=== PATIENT | female | born 1960 | race Caucasian/White ===

== ENCOUNTER 2020-08-26 13:06 | Observation (INO) | payer OTHER ==
[~2020-08-26] VITALS: Ht 170.2 cm; Wt 87.1 kg
--- NOTE | ~2020-08-26 | OP ---
[address] [address] OPERATIVE REPORT Name: JENNA CONTRERAS Room: [address]#: [id number] Admission: 08/26/20 Attend Phys: Ar Khan DO Discharge: Date of : 56 Report #: [id number] THIS REPORT FOR: cc: Sandra Panda,Ar Ohara DO ~ cc: DELVIS Johnson DATE OF SURGERY: 08/26/2020 PREOPERATIVE DIAGNOSIS: Acute appendicitis. POSTOPERATIVE DIAGNOSIS: Acute appendicitis. SURGEON: Ar Khan DO CO-SURGEON: Jack Lakhani, PGY5. [employer] DEVELOPER: LEONARDA BeasleyY2 PROCEDURE PERFORMED: Laparoscopic appendectomy. TYPE OF ANESTHESIA: General and local. ESTIMATED BLOOD LOSS: 20 mL SPECIMEN: Appendix. COMPLICATIONS: None. FINDINGS: Acute appendicitis with localized peritonitis. HISTORY OF PRESENT ILLNESS: The patient is a 60-year-old female who presented to the emergency room with right flank pain for roughly 12 hours with some nausea, no vomiting. A CT scan on arrival revealed acute appendicitis. We discussed with her at length the risks, benefits and alternatives to include bleeding, infection, injury to surrounding structures, possible open surgery. After acknowledging her understanding of the risks and benefits, she agreed to proceed with surgery. DESCRIPTION OF PROCEDURE: After consent was obtained, the patient was taken to the operating room and placed in the supine position. SCDs were applied to bilateral lower extremities. Safety belt placed across the patient's waist. Two grams Ancef given for surgical prophylaxis. The patient underwent general endotracheal intubation without any complication. The patient's abdomen was prepped and draped in the standard sterile fashion. [place] [address] OPERATIVE REPORT Name: DIANEJENNA Room: [address]#: [id number] Admission: 08/26/20 Attend Phys: Ar Khan DO Discharge: Date of : 56 Report #: [id number] confirm the patient, procedure. An 11 blade scalpel was used to make an incision just below the umbilicus. Electrocautery used for hemostasis and to dissect down to the level of fascia. Once the fascia was encountered, it was scored with electrocautery, grasped between 2 Kochers. Hemostat was used bluntly into the peritoneum. Two stitches of 0 Vicryl were placed on either side of the fascia. A 5 mm Krystin trocar inserted into the abdomen, insufflation initiated. Intra-abdominal contents were inspected. There was no evidence of localized peritonitis on the right lower quadrant. We then placed a 5 mm trocar suprapubic under direct visualization and a 12 mm trocar in the left lower quadrant. The patient was placed in slight Trendelenburg. The tinea of the cecum was traced down towards the appendix, which was seen to be grossly dilated and edematous consistent with acute appendicitis. The appendix was mobilized and the Harmonic scalpel was used to dissect across the mesoappendix. Once hemostasis was completely insured 45 purple load Endo-MABEL stapler was fired across the base of the appendix. The appendix was placed in laparoscopic EndoCatch bag. The staple line was inspected for bleeding. Once hemostasis was ensured, the right lower quadrant was irrigated and fluid was suctioned out, the patient was returned to the neutral position. All trocars were removed under direct visualization. The appendix and its contents were removed from the infraumbilical trocar site and sent for pathologic evaluation. Infraumbilical fascia was reapproximated with 2 stitches of 0 Vicryl in [id number] fashion. Subcutaneous tissue reapproximated with 3-0 Vicryl. All skin incisions were reapproximated with 4-0 Monocryl in subcuticular fashion. All needle, instrument and sponge counts correct x2 at the end of the case. The patient tolerated the procedure well and was awoken from general anesthesia and transferred to PACU in stable condition. By: [id number] maria Khan DO /ney
[~2020-08-26 13:06] MED LIST: CITRATE OF MAG296 ML PO; FOLIC ACID1 MG PO; LEVSIN PO; OMEPRAZOLE40 MG PO; SIMVASTATIN40 MG PO
[2020-08-26 13:14] VITALS: BP 132/72
[2020-08-26 13:34] LABS: ABSOLUTE BASOPHILS 0.1 thou/uL (0.0-0.2); ABSOLUTE LYMPHOCYTES 1.7 thou/uL (0.8-5.3); ABSOLUTE NEUTROPHILS 13.2 thou/uL (1.6-8.1); BASOPHILS 0.6 %; HEMOGLOBIN 14.3 gm/dL (12.0-15.0); LYMPHOCYTES 10.4 %; MCH 31.3 pg (26.0-34.0); MCHC 34.9 g/dL (28.0-37.0); MCV 89.7 fL (80.0-100.0); MONOCYTES 6.2 %; MPV 8.2 fl. (7.2-11.1); NUCLEATED RBCS 0 /100WBC; PLATELET COUNT* 327 thou/uL (150-400); POLYS 82.8 %; RBC 4.57 mil/uL (4.20-5.00); RDW-CV 12.8 % (10.5-14.5)
[2020-08-26 13:53] LABS: CALCIUM 8.7 mg/dL (8.5-10.1); CREATININE 0.8 mg/dL (0.6-1.3); POTASSIUM 3.8 mmol/L (3.5-5.1)
[2020-08-26 13:57] LABS: ALBUMIN 3.8 g/dL (3.4-5.0); TOTAL BILIRUBIN 0.5 mg/dL (<0.1-1.0); TOTAL PROTEIN 7.5 g/dL (6.4-8.2)
[2020-08-26 14:15] LABS: URINE BILIRUBIN NEGATIVE (Negative); URINE BLOOD 1+ (Negative); URINE CLARITY HAZY; URINE COLOR YELLOW; URINE GLUCOSE-RANDOM NEGATIVE (Negative); URINE KETONES NEGATIVE (Negative); URINE LEUKOCYTES-REFLEX TRACE (Negative); URINE NITRITE-REFLEX NEGATIVE (Negative); URINE PROTEIN TRACE (Negative); URINE SPECIFIC GRAVITY 1.015 (1.005-1.030)
[2020-08-26 14:25] LABS: BACTERIA-REFLEX None Seen /HPF (None Seen); CASTS None Seen /LPF (None Seen); CRYSTALS None Seen /LPF (None Seen); MUCUS 0-3 Light strn/LPF (None Seen); SQUAMOUS >10 Many /LPF (0-3); URINE RBC None Seen /HPF (0-2); URINE WBC-REFLEX 0-5 Rare /HPF (0-5)
--- NOTE | 2020-08-26 16:09 | EKG ---
[place] [address] ELECTROCARDIOGRAM REPORT Name: DIANEJENNA J Room: [facility]#: [id number] Admission: 08/26/20 Attend Phys: Discharge: Date of : 56 Date of Service: 08/26/20 1320 Report #: [id number] THIS REPORT FOR: //name// [facility] ED Test Date: 2020-08-26 Test Time: 13:20:08 Pat Name: JENNA CONTRERAS Department: Room: Gender: F Varnish Remover: HARE : 1960 Requested By: Nany Bolaños Order Number: [id number] MD: Jn Petersen Measurements Intervals [place] Rate: 109 P: 66 VT: 131 QRS: -58 QRSD: 122 T: 32 QT: 351 QTc: 473 Interpretive Statements Sinus tachycardia Consider right atrial enlargement RBBB and LAFB Left ventricular hypertrophy Baseline wander in lead(s) II,III,aVF Compared to ECG 10/04/2008 07:43:33 Left anterior fascicular block now present Right bundle-branch block now present Left ventricular hypertrophy now present Sinus rhythm no longer present Short VT interval no longer present Electronically Signed On 08-26-2020 16:09:10 CDT by Jn Petersen [email or web address] <ELECTRONICALLY SIGNED> By: Jn Petersen MD, [facility] 08/26/20 1609 132 1320 Jn Petersen MD, [facility] /EPI
[2020-08-26 16:27] VITALS: BP 121/65
[2020-08-26] MEDS ORDERED: LISINOPRIL5 MG PO (17:06)
[2020-08-26 20:00] VITALS: BP 139/42
[2020-08-26 23:55] VITALS: BP 125/66
[2020-08-27 04:00] VITALS: BP 107/49
[2020-08-27 06:16] LABS: CALCIUM 7.9 mg/dL (8.5-10.1); CREATININE 0.8 mg/dL (0.6-1.3); POTASSIUM 4.4 mmol/L (3.5-5.1)
[2020-08-27 07:30] VITALS: BP 111/51
[2020-08-27 07:48] VITALS: BP 107/49
[2020-08-27 08:46] VITALS: BP 107/49
== END 2020-08-27 09:44 | disposition home or self-care (01) ==
LOC: M.ERS 13:06 → M.TBA-CV 16:46 → M.SUR 16:46 → M.3W 19:57
PROVIDERS: Physician Assistant; ADMIT Surgery; ATTEND Surgery
DX: K35.80 Unspecified acute appendicitis (principal); Z20.822 Contact with and (suspected) exposure to COVID-19; K21.9 Gastro-esophageal reflux disease without esophagitis; I10 Essential (primary) hypertension; E78.5 Hyperlipidemia, unspecified; F17.210 Nicotine dependence, cigarettes, uncomplicated; Z88.5 Allergy status to narcotic agent

== ENCOUNTER → 2020-11-01 | Outpatient (CLI) | payer OTHER ==
[~2020-11-01] MED LIST changes: +LISINOPRIL5 MG PO
[2020-11-01 16:02] LABS: ABSOLUTE BASOPHILS 0.1 thou/uL (0.0-0.2); ABSOLUTE EOSINOPHILS 0.1 thou/uL (0.0-0.7); ABSOLUTE LYMPHOCYTES 2.9 thou/uL (0.8-5.3); ABSOLUTE MONOCYTES 0.7 thou/uL (0.0-1.2); ABSOLUTE NEUTROPHILS 6.2 thou/uL (1.6-8.1); BASOPHILS 0.7 %; EOSINOPHILS 0.9 %; HEMATOCRIT 41.7 % (37.0-47.0); HEMOGLOBIN 14.2 gm/dL (12.0-15.0); LYMPHOCYTES 29.6 %; MCH 30.9 pg (26.0-34.0); MCHC 34.1 g/dL (28.0-37.0); MCV 90.8 fL (80.0-100.0); MONOCYTES 6.9 %; MPV 8.2 fl. (7.2-11.1); NUCLEATED RBCS 0 /100WBC; PLATELET COUNT* 299 thou/uL (150-400); POLYS 61.9 %; RBC 4.59 mil/uL (4.20-5.00); RDW-CV 13.3 % (10.5-14.5)
[2020-11-01 16:06] LABS: CALCIUM 9.2 mg/dL (8.5-10.1); CREATININE 0.9 mg/dL (0.6-1.3); POTASSIUM 4.1 mmol/L (3.5-5.1)
[2020-11-01 16:11] LABS: ALBUMIN 4.1 g/dL (3.4-5.0); TOTAL BILIRUBIN 0.4 mg/dL (<0.1-1.0); TOTAL PROTEIN 7.8 g/dL (6.4-8.2)
== END ==
LOC: M.LAB 14:54
PROVIDERS: ATTEND Registered Nurse Diabetes Educator
DX: R94.31 Abnormal electrocardiogram [ECG] [EKG] (principal); R07.9 Chest pain, unspecified; R00.2 Palpitations

== ENCOUNTER → 2020-11-16 | Outpatient (CLI) | payer OTHER | LOC: M.CT 10:35 | PROVIDERS: ATTEND Internal Medicine Cardiovascular Disease | DX: Z13.6 Encounter for screening for cardiovascular disorders (principal); I25.10 Atherosclerotic heart disease of native coronary artery without angina pectoris ==

== ENCOUNTER → 2020-11-16 | Outpatient (CLI) | payer OTHER ==
--- NOTE | 2020-11-16 12:33 | 2DMMODE ---
[place] [address] 2 D/M-MODE ECHOCARDIOGRAM Name: DIANEJENNA J Room: [facility]#: [id number] Admission: 11/16/20 Attend Phys: Jn Petersen, Discharge: Date of : 56 Date of Service: 11/16/20 1233 Report #: [id number] THIS REPORT FOR: cc: Fidel Good MD, Meng MD Holkins, John M. MD [facility] ~ APPROVED REPORT Study performed: 11/16/2020 11:16:30 EXAM: Comprehensive 2D, Doppler, and color-flow Echocardiogram Patient Location: Out-Patient BSA: 1.98 HR: 80 bpm BP: 128/70 mmHg Other Information Study Quality: Good Indications Abnormal ECG 2D Dimensions IVSd: 10.84 (7-11mm) LVOT Diam: 20.36 (18-24mm) LVDd: 40.31 mm PWd: 11.04 (7-11mm) Ascending Ao: 26.97 (22-36mm) LVDs: 26.54 (25-40mm) Aortic Root: 32.97 mm Volumes Left Atrial Volume (Systole) LA ESV Index: 12.50 mL/m2 Aortic Valve AoV Peak Leonard.: 1.38 m/s AO Peak Gr.: 7.56 mmHg LVOT Max P.74 mmHg AO Mean Gr.: 3.99 mmHg LVOT Mean P.10 mmHg LVOT Max V: 1.30 m/s AO V2 VTI: 25.13 cm LVOT Mean V: 0.80 m/s ILIR (VTI): 3.40 cm2 LVOT V1 VTI: 26.24 cm Mitral Valve E/A Ratio: 0.75 [place] [address] 2 D/M-MODE ECHOCARDIOGRAM Name: JENNA CONTRERAS Room: [facility]#: [id number] Admission: 11/16/20 Attend Phys: Jn Petersen, Discharge: Date of : 56 Date of Service: 11/16/20 1233 Report #: [id number] MV Decel. Time: 300.43 ms MV E Max Leonard.: 0.67 m/s MV PHT: 87.13 ms MVA (PHT): 2.53 cm2 TDI E/Lateral E': 5.58 E/Medial E': 8.38 Medial E' Leonard.: 0.08 m/s Lateral E' Leonard.: 0.12 m/s Pulmonary Valve PV Peak Leonard.: 1.01 m/s PV Peak Gr.: 4.08 mmHg Left Ventricle The left ventricle is normal size. There is normal LV segmental wall motion. There is normal left ventricular wall thickness. Left ventricular systolic function is normal. The left ventricular ejection fraction is within the normal range. LVEF is 55-60%. Grade I - abnormal relaxation pattern. Right Ventricle The right ventricle is normal size. The right ventricular systolic function is normal. Atria The left atrium size is normal. The right atrium size is normal. Aortic Valve The aortic valve is normal in structure. No aortic regurgitation is present. There is no aortic valvular stenosis. Mitral Valve The mitral valve is normal in structure. There is no mitral valve regurgitation noted. No evidence of mitral valve stenosis. Tricuspid Valve The tricuspid valve is normal in structure. There is no tricuspid valve regurgitation noted. Pulmonic Valve The pulmonary valve is normal in structure. Mild pulmonic regurgitation. Mild to moderate pulmonic regurgitation. Great Vessels The aortic root is normal in size. IVC [place] [address] 2 D/M-MODE ECHOCARDIOGRAM Name: JENNA CONTRERAS Room: [facility]#: [id number] Admission: 11/16/20 Attend Phys: Jn Petersen, Discharge: Date of : 56 Date of Service: 11/16/20 1233 Report #: [id number] collapses >50% with inspiration. Pericardium There is no pericardial effusion. <Conclusion> The left ventricle is normal size. There is normal left ventricular wall thickness. Left ventricular systolic function is normal. The left ventricular ejection fraction is within the normal range. LVEF is 55-60%. Grade I - abnormal relaxation pattern. The right ventricle is normal size. The left atrium size is normal. The aortic valve is normal in structure. The mitral valve is normal in structure. The tricuspid valve is normal in structure. IVC is normal in size and collapses >50% with inspiration. There is no pericardial effusion. There is normal LV segmental wall motion. <ELECTRONICALLY SIGNED> By: William Sena MD, FACC 11/16/20 1233 1233 1233 William Sena MD, FACC /INF
== END ==
LOC: M.CRD 10:37
PROVIDERS: ATTEND Internal Medicine Cardiovascular Disease
DX: I37.1 Nonrheumatic pulmonary valve insufficiency (principal); R94.31 Abnormal electrocardiogram [ECG] [EKG]; R00.2 Palpitations